=== PATIENT | male | born 2000 | race American Indian/Alaskan Native ===

== ENCOUNTER 2021-07-13 17:41 | Emergency (ER) | payer SELFPAY ==
[~2021-07-13] VITALS: Ht 185.4 cm; Wt 93.0 kg
[2021-07-13 21:27] VITALS: BP 104/59
[2021-07-13] MEDS ORDERED: ACETAMINOPHEN 325MG TABLET PO ONE (21:30)
[2021-07-13] MEDS ORDERED: IBUPROFEN 400MG TABLET PO ONE (21:30)
== END 2021-07-13 21:36 | disposition home or self-care (01) ==
LOC: ER 17:41
DX: J06.9 Acute upper respiratory infection, unspecified (principal); Z20.822 Contact with and (suspected) exposure to COVID-19
CPT/HCPCS: 87426; 99283